=== PATIENT | female | born 1975 | race Caucasian/White ===

== ENCOUNTER → 2018-06-06 18:04 | Outpatient (CLI) | payer MEDICAID | END | disposition home or self-care (01) | LOC: D.MAMMO 16:00 | DX: Z12.31 Encounter for screening mammogram for malignant neoplasm of breast (principal) ==

== ENCOUNTER 2019-06-18 15:30 | Outpatient (CLI) | payer MEDICAID | END 2019-06-18 16:00 | disposition home or self-care (01) | LOC: D.MAMMO 15:30 | PROVIDERS: ATTEND Obstetrics & Gynecology Obstetrics | DX: Z12.31 Encounter for screening mammogram for malignant neoplasm of breast (principal) ==